=== PATIENT | female | born 1970 | race Caucasian/White ===

== ENCOUNTER 2020-10-05 08:21 | Emergency (ER) | payer OTHER ==
[~2020-10-05] VITALS: Ht 170.2 cm; Wt 99.8 kg
[2020-10-05 08:27] VITALS: BP 166/116
--- NOTE | 2020-10-05 09:26 | NUR ---
covid 19 swab collected and sent to lab
--- NOTE | 2020-10-05 09:26 | NUR ---
Patient discharged to home in stable condition. Written and verbal after care instructions given. Patient verbalizes understanding of instruction.
== END 2020-10-05 09:26 | disposition home or self-care (01) ==
LOC: ER 08:23
DX: J02.9 Acute pharyngitis, unspecified (principal); Z20.828 Contact with and (suspected) exposure to other viral communicable diseases; R03.0 Elevated blood-pressure reading, without diagnosis of hypertension; L40.50 Arthropathic psoriasis, unspecified
CPT/HCPCS: 87426; 99283; C9803; U0003

== ENCOUNTER 2025-05-15 22:16 | Emergency (ER) | payer OTHER ==
[~2025-05-15] VITALS: Ht 170.2 cm; Wt 99.8 kg
[2025-05-15 22:29] VITALS: TEMP 98.5
[2025-05-16] MEDS ORDERED: CIPROFLOXACIN HCL 500 MG TABLET ONE (00:33)
[2025-05-16] MEDS ORDERED: AZITHROMYCIN 250 MG TABLET ONE (00:34)
[2025-05-16] MEDS: CIPROFLOXACIN HCL 250 MG TABLET PO ONE (00:40)
[2025-05-16] MEDS: AZITHROMYCIN 250 MG TABLET PO ONE (00:40)
[2025-05-16 01:00] VITALS: O2SAT 98
== END 2025-05-16 02:36 | disposition home or self-care (01) ==
LOC: ER 22:18
DX: Z13.89 Encounter for screening for other disorder (principal)